=== PATIENT | female | born 2000 | race Asian ===

== ENCOUNTER 2023-05-01 20:15 | Emergency (ER) | payer BC ==
[~2023-05-01] VITALS: Ht 154.9 cm; Wt 54.0 kg
[2023-05-01 20:32] VITALS: BP 122/68; PULSE 79; RESP 18; TEMP 98.6; O2SAT 100
[2023-05-01] MEDS ORDERED: ACETAMINOPHEN 325MG TABLET PO STA (21:06)
[2023-05-01] MEDS ORDERED: ONDANSETRON 4MG ODT PO STA (21:24)
[2023-05-01] MEDS ORDERED: CYCL5TAB PO (22:20)
[2023-05-01] MEDS ORDERED: NAPR-681 PO (22:20)
== END 2023-05-01 22:34 | disposition home or self-care (01) ==
LOC: ER 20:15
DX: S16.1XXA Strain of muscle, fascia and tendon at neck level, initial encounter (principal); R51.9 Headache, unspecified; J45.909 Unspecified asthma, uncomplicated; V49.59XA Passenger injured in collision with other motor vehicles in traffic accident, initial encounter; Y93.89 Activity, other specified; Y92.89 Other specified places as the place of occurrence of the external cause; Y99.8 Other external cause status; Z90.49 Acquired absence of other specified parts of digestive tract
CPT/HCPCS: 99284; 70450; 81025; 72125; Q0162